=== PATIENT | male | born 2000 | race Caucasian/White ===

== ENCOUNTER 2020-05-20 10:29 | Day surgery (SDC) | payer SELFPAY ==
[2020-05-20] VITALS (7 sets, daily range): BP systolic 115–127; BP diastolic 67–85
[~2020-05-20] VITALS: Ht 182.9 cm; Wt 66.7 kg
[~2020-05-20 10:29] MED LIST: NO HOME MEDS; cefazolin/dext.iso 2gm/50ml 50 ML IV ONE; famotidine 20mg tablet PO ONE; ringers solution, lacted 1,000 ML IV SCH
[2020-05-20] MEDS ORDERED: meperidine/PF 25mg/ml syringe IV PRN ×3 (11:30)
[2020-05-20] MEDS ORDERED: ringers solution, lacted 1,000 ML IV SCH (11:30)
[2020-05-20] MEDS ORDERED: proCHLORperazine 10 MG/2 ml inj IV PRN (11:30)
[2020-05-20] MEDS ORDERED: ondansetron/PF 4mg/2ml inj IV PRN (11:30)
[2020-05-20] MEDS ORDERED: morphine 4 MG/ML inj SYRINge IV PRN (11:30)
[2020-05-20] MEDS ORDERED: morphine 2 MG/ML inj. syringe IV PRN (11:30)
[2020-05-20] MEDS ORDERED: BUPIVAcaine/PF 2.5 mg/ml (0.25%) 30ml vial ONE ×2 (12:16→13:31)
[2020-05-20] MEDS ORDERED: LIDOcaine 1% 30ml preserv. free vial ONE (13:07)
[2020-05-20] MEDS ORDERED: fentaNYL/PF 50MCG/1 ML 2ML syringe ONE (13:09)
[2020-05-20] MEDS ORDERED: MIDAZolam 5mg/5ml vial ONE (13:09)
[2020-05-20] MEDS ORDERED: 0.9 % SODIUM CHLORIDE 10 ML VIAL ONE (13:16)
[2020-05-20] MEDS ORDERED: ketorolac trometh. 30mg/ml inj. ONE (13:16)
--- NOTE | 2020-05-20 13:48 | NUR ---
PATIENT AND FAMILY AND THEY HAVE VERBALIZED UNDERSTANDING, OPPORTUNITY TO ASK QUESTIONS GIVEN AND PATIENT COMFORTABLE WITH DC. IV TAKEN OUT WITHOUT COMPLICATION. PATIENT HAS MET ALL DC CRITERIA FOR DC HOME. I HAVE REVIEWED D/C INSTRUCTIONS WITH OUT VIA WHEELCHAIR WHERE PATIENT WAS TAKEN HOME WITH ALL BELONGINGS. FAMILY GAVE PATIENT TRANSPORT HOME. Addendum: 05/20/20 at 1456 by Cameron Torres RN, RN Amended: Links added.
--- NOTE | 2020-05-20 13:48 | NUR ---
Received from OR via [facility] , accompanied by Anesthesiologist LETICIA and report given by Anesthesiolgist. PATIENT WITH FROYLAN TO RIGHT UE , NO DRAINGE, + CAP REFILL AND MOVEMENT OF ALL FINGERS. THUMB IN A SPICA. + CAP REFILL. LEFT UE WITH 20GP IV RUNNING LR AT 100. DENIES PAIN AND VSS. Addendum: 05/20/20 at 1408 by Cameron Torres RN, RN Amended: Links added.
== END 2020-05-20 14:38 | disposition home or self-care (01) ==
LOC: PAS 10:29
PROVIDERS: ATTEND Orthopaedic Surgery Hand Surgery
DX: S66.221A Laceration of extensor muscle, fascia and tendon of right thumb at wrist and hand level, initial encounter (principal); Z79.899 Other long term (current) drug therapy; Z72.89 Other problems related to lifestyle; X83.8XXA Intentional self-harm by other specified means, initial encounter; Y93.89 Activity, other specified; Y92.89 Other specified places as the place of occurrence of the external cause; Y99.8 Other external cause status
CPT/HCPCS: 26410; 26418; 82948; J1885; J2001; J2250; J3010; J3490; A4215; A4615; A4618; J7120